=== PATIENT | female | born 1960 | race Caucasian/White ===

== ENCOUNTER 2022-10-06 13:04 | Emergency (ER) | payer SELFPAY ==
[~2022-10-06] VITALS: Ht 170.2 cm; Wt 68.9 kg
[~2022-10-06 13:04] MED LIST: ADVIL200 M1 PO; ASPIRIN325 MG PO; LINZESS72 MCG PO; MOBIC15 MG PO; OMEPRAZOLE40 MG PO
== END 2022-10-06 14:37 | disposition left against medical advice (07) ==
LOC: ER 13:31
DX: R59.9 Enlarged lymph nodes, unspecified (principal)